=== PATIENT | male | born 1975 | race Caucasian/White ===

== ENCOUNTER 2019-01-24 20:07 | Emergency (ER) | payer BC, OTHER ==
[2019-01-24 22:09] LABS: ABS Eosinophils 0.1 10^3/ul (0-0.6); ABS Lymphocytes 1.9 10^3/ul (1.0-4.8); ABS Monocytes 0.7 10^3/ul (0-0.8); ABS Neutrophils 3.1 10^3/ul (1.5-7.7); Eosinophil % 2.3 %; Hematocrit 47 % (42-52); Hemoglobin 15.7 g/dL (14.0-18.0); Lymphocyte % 32.7 %; Mean Corpuscular HGB Conc 34 g/dL (31-36); Mean Corpuscular Hemoglobin 30 pg (27-31); Mean Corpuscular Volume 89 fL (80-94); Mean Platelet Volume 8.4 fL (7.4-10.4); Nucleated Red Blood Cells % 0.2; Platelet Count 174 10^3/uL (150-450); Red Blood Count 5.24 10^6 /uL (4.18-5.48); Red Cell Distribution Width 13 % (10-15); White Blood Count 5.9 10^3/uL (3.5-10.8)
[2019-01-24 22:24] LABS: Albumin 4.4 g/dL (3.2-5.2); Albumin/Globulin Ratio 1.8 (1-3); BUN/Creatinine Ratio 12.6 (8-20); C Reactive Protein 20.36 mg/L (<8.01); Calcium 9.1 mg/dL (8.6-10.3); EGFR Non-African American 96.7 (>60); Globulin 2.5 g/dL (2-4); Potassium 3.3 mmol/L (3.5-5.0); Total Bilirubin 0.5 mg/dL (0.2-1.0); Total Protein 6.9 g/dL (6.4-8.9)
--- NOTE | 2019-01-24 23:01 | ED ---
Abdominal Pain/Male - HPI Summary HPI Summary: This patient is a 43 year old male presenting to [facility] with a chief complaint of suprapubic pain since 3 days ago. He also reports headache and dysuria. He states it has increased in severity yesterday. He figured the pain would pass but it did not lessen in severity. He denies N/V. He reports chills. He states he has had GI problems for a long time but feels this is something completely different. He states he has never had surgery on his abdomen. - History of Current Complaint Chief Complaint: EDUrogenitalProblems Stated Complaint: ABD PAIN PER PT Hx Obtained From: Patient Onset/Duration: Sudden Onset, Lasting Days Pain Intensity: 7 Pain Scale Used: 0-10 Numeric Location: Suprapubic - Allergies/Home Medications Allergies/Adverse Reactions: Allergies Allergy/AdvReac Type Severity Reaction Status Date / Time aspirin Allergy Unknown Verified 01/24/19 20:24 Reaction Details Penicillins Allergy Unknown Verified 01/24/19 20:25 Reaction Details PMH/Surg Hx/FS Hx/Imm Hx Respiratory History: Reports: Hx Asthma - A CHILD GI History: Reports: Other GI Disorders - Unspecified Infectious Disease History: No Infectious Disease History: Denies: Traveled Outside the [place] in Last 30 Days - Family History Known Family History: Negative: Diabetes - Social History Occupation: Employed Full-time Substance Use Type: Reports: None Review of Systems Positive: Chills Positive: Abdominal Pain. Negative: Vomiting, Nausea Positive: dysuria, pain All Other Systems Reviewed And Are Negative: Yes Physical Exam - Summary Physical Exam Summary: Appearance: Well-appearing, Well-nourished, lying in bed comfortably Skin: Warm, dry, no obvious rash Eyes: sclera anicteric, no conjunctival pallor ENT: mucous membranes moist, pharynx appears normal Neck: Supple, nontender Respiratory: Clear to auscultation, no signs of respiratory distress Cardiovascular: Normal S1, S2. No murmurs. Normal distal pulses in tibial and radial bilaterally. Abdomen: Soft, normal active bowel sounds present. Lower abdominal tenderness with mild guarding and mild rebound tenderness that is not lateralizing. Musculoskeletal: Normal, Strength/ROM Intact Neurological: A&Ox3, awake and alert, mentation is normal, speech is fluent and appropriate Psychiatric: affect is normal, does not appear anxious or depressed Triage Information Reviewed: Yes Vital Signs On Initial Exam: Initial Vitals Temp Pulse Resp BP Pulse Ox 98.5 F 82 16 125/101 96 01/24/19 20:20 01/24/19 20:20 01/24/19 20:20 01/24/19 20:20 01/24/19 20:20 Vital Signs Reviewed: Yes Procedures - Sedation Patient Received Moderate/Deep Sedation with Procedure: No Diagnostics - Vital Signs Vital Signs Temp Pulse Resp BP Pulse Ox 01/24/19 22:05 98.7 F 60 16 121/75 96 01/24/19 20:20 98.5 F 82 16 125/101 96 - Laboratory Lab Results: Lab Results 01/24/19 01/24/19 01/24/19 Range/Units 21:59 21:59 21:59 WBC 5.9 (3.5-10.8) 10^3/uL RBC 5.24 (4.18-5.48) 10^6 /uL Hgb 15.7 (14.0-18.0) g/dL Hct 47 (42-52) % MCV 89 (80-94) fL MCH 30 (27-31) pg MCHC 34 (31-36) g/dL RDW 13 (10-15) % Plt Count 174 (150-450) 10^3/uL MPV 8.4 (7.4-10.4) fL Neut % (Auto) 52.1 % Lymph % (Auto) 32.7 % Coal % (Auto) 12.2 % Eos % (Auto) 2.3 % Baso % (Auto) 0.7 % Absolute Neuts (auto) 3.1 (1.5-7.7) 10^3/ul Absolute Lymphs (auto) 1.9 (1.0-4.8) 10^3/ul Absolute Monos (auto) 0.7 (0-0.8) 10^3/ul Absolute Eos (auto) 0.1 (0-0.6) 10^3/ul Absolute Basos (auto) 0.0 (0-0.2) 10^3/ul Absolute Nucleated RBC 0.0 10^3/ul Nucleated RBC % 0.2 Sodium 140 (135-145) mmol/L Potassium 3.3 L (3.5-5.0) mmol/L Chloride 104 (101-111) mmol/L Carbon Dioxide 28 (22-32) mmol/L Anion Gap 8 (2-11) mmol/L BUN 11 (6-24) mg/dL Creatinine 0.87 (0.67-1.17) mg/dL Est GFR ( Amer) 117.0 (>60) Est GFR (Non-Af Amer) 96.7 (>60) BUN/Creatinine Ratio 12.6 (8-20) Glucose 103 H (70-100) mg/dL Lactic Acid 1.7 (0.5-2.0) mmol/L Calcium 9.1 (8.6-10.3) mg/dL Total Bilirubin 0.50 (0.2-1.0) mg/dL AST 14 (13-39) U/L ALT 19 (7-52) U/L Alkaline Phosphatase 38 (34-104) U/L C-Reactive Protein 20.36 H (<8.01) mg/L Total Protein 6.9 (6.4-8.9) g/dL Albumin 4.4 (3.2-5.2) g/dL Globulin 2.5 (2-4) g/dL Albumin/Globulin Ratio 1.8 (1-3) Lipase 42 (11.0-82.0) U/L Result Diagrams: 01/24/19 21:59 01/24/19 21:59 Lab Statement: Any lab studies that have been ordered have been reviewed, and results considered in the medical decision making process. - CT Abd/Pel CT Interpretation Completed By: Radiologist Summary of CT Findings: 1. The appendix is unreamrkable. 2. There is colonic diverticulosis with mild wall thickening and fat stranding in the sigmoid colon suspicious for mild acute diverticultis without visible abscess or signs of gross perforation. ED Provider has reviewed this report. Abdominal Pain Male Course/Dx - Course Course Of Treatment: This patient is a 43 year old male presenting to [facility] with a chief complaint of suprapubic pain since 3 days ago. Physical exam revealed lower abdominal tenderness with mild guarding and mild rebound tenderness that is not lateralizing. CT Abd/Pel revealed 1. The appendix is unreamrkable. 2. There is colonic diverticulosis with mild wall thickening and fat stranding in the sigmoid colon suspicious for mild acute diverticultis without visible abscess or signs of gross perforation. A plan for discharge was discussed with the patient and he was agreeable with this plan. - Diagnoses Provider Diagnoses: Acute diverticulitis Discharge ED - Sign-Out/Discharge Documenting (check all that apply): Patient Departure - Discharge Patient Received Moderate/Deep Sedation with Procedure: No - Discharge Plan Condition: Good Disposition: HOME Prescriptions: metroNIDAZOLE [Flagyl 500 MG TAB] 500 mg PO TID 30 Days #1 tab Sulfamethox/Trimethoprim DS* [Bactrim DS 800/160 TAB*] 1 tab PO BID #20 tab Patient Education Materials: Diverticulitis (ED) Referrals: Alex Pena MD [Medical Doctor] - 4 Days (if not improving) - Billing Disposition and Condition Condition: GOOD Disposition: Home - Attestation Statements Document Initiated by Frank: Yes Documenting Scribe: Carlos Franco Provider For Whom Frank is Documenting (Include Credential): Dwaine López MD Scribe Attestation: Carlos Barajas, [email or web address] for Dwaine López MD on 01/31/19 at 0332. Scribe Documentation Reviewed: Yes Provider Attestation: The documentation as recorded by the Carlos levy accurately reflects the service I personally performed and the decisions made by , Dwaine López MD Status of Scribe Document: Viewed
[2019-01-24 23:58] LABS: Urine Appearance Clear; Urine Bacteria Absent (Absent); Urine Bilirubin Negative (Negative); Urine Blood 1+ (Negative); Urine Color Yellow; Urine Glucose Negative (Negative); Urine Ketones Trace (Negative); Urine Nitrite Negative (Negative); Urine Protein Negative (Negative); Urine Red Blood Cell 1+(3-5/hpf) (Absent); Urine Specific Gravity 1.015 (1.010-1.030); Urine Urobilinogen Negative (Negative); Urine White Blood Cell Absent (Absent)
[2019-01-25] MEDS ORDERED: Iohexol 300* (CONTRAST) 10 ML SDV IV ONE (00:48)
[2019-01-25] MEDS ORDERED: metroNIDAZOLE TAB* 250 MG PO ONE (02:54)
[2019-01-25] MEDS ORDERED: Sulfamethox/Trimethoprim DS 800/160* TAB PO ONE (02:54)
[2019-01-25 03:10] VITALS: BP 133/92
== END 2019-01-25 03:09 | disposition home or self-care (01) ==
LOC: ED 20:07
DX: K57.32 Diverticulitis of large intestine without perforation or abscess without bleeding (principal); Z88.6 Allergy status to analgesic agent; Z88.0 Allergy status to penicillin
CPT/HCPCS: 36415; 74177; 80053; 81003; 81015; 83605; 83690; 85025; 86140; 99282; A9270-GY; Q9967